=== PATIENT | female | born 1935 | race Caucasian/White ===

== ENCOUNTER → 2016-10-30 | Outpatient (CLI) | payer MEDICARE, BC | LOC: MC.RAD 13:16 | DX: Z12.31 Encounter for screening mammogram for malignant neoplasm of breast (principal) ==

== ENCOUNTER 2017-09-28 11:16 | Emergency (ER) | payer MEDICARE, BC ==
[~2017-09-28] VITALS: Ht 157.5 cm; Wt 63.6 kg
[2017-09-28 11:19] VITALS: TEMP 97.7
[2017-09-28] MEDS ORDERED: ZOCOR 40MG40 MG PO (11:40)
[2017-09-28] MEDS ORDERED: ZOCOR 40MG40 MG (11:41)
[2017-09-28] MEDS ORDERED: LEVOXYL0.025 MG (11:42)
[2017-09-28] MEDS ORDERED: NORMODYNE100 MG (11:43)
[2017-09-28] MEDS ORDERED: ZESTRIL 5MG5 MG (11:43)
[2017-09-28] MEDS ORDERED: NAMENDA5 MG (11:44)
[2017-09-28] MEDS ORDERED: ARICEPT 5MG (11:44)
[2017-09-28 12:57] LABS: BASO % 0.4 % (0.0-2.0); EOS # 0.1 (0.0-0.7); EOS % 1.1 % (0-4.0); GRAN # 7.2 (1.4-6.5); GRAN % 72.6 % (42.2-75.2); HEMATOCRIT 39.1 % (37.0-47.0); HEMOGLOBIN 12.7 g/dl (12.5-16.0); LYMPH # 1.8 (1.2-3.4); LYMPH % 17.8 % (20.0-51.0); MEAN CELL VOLUME 98 fl (80.0-100.0); MEAN CORPUSCULAR HEMOGLOBIN 32 pg (27.0-31.0); MEAN CORPUSCULAR HGB CONC 33 g/dl (33.0-37.0); MONO # 0.7 (0.1-0.6); MONO % 7.4 % (1.7-9.3); PLATELET COUNT 185 K/mm3 (130-400); RED BLOOD COUNT 3.99 M/mm3 (4.10-5.30); REDCELL DISTRIBUTION WIDTH-CV 12.8 % (11.5-14.5)
[2017-09-28 13:43] LABS: ALANINE AMINOTRANSFERASE 28 U/L (9-52); ALBUMIN 3.7 gm/dL (3.5-5.0); ALKALINE PHOSPHATASE 89 U/L (50-136); ANION GAP 8 mmol/L (7-16); AST,SGOT 39 U/L (15-37); BILIRUBIN,TOTAL 0.4 mg/dL (0.0-1.0); BLOOD UREA NITROGEN 16 mg/dL (7-17); CALCIUM 9.1 mg/dL (8.4-10.2); CARBON DIOXIDE 24 mmol/L (22-30); CHLORIDE 106 mmol/L (98-107); CREATININE, serum 1.28 mg/dL (0.52-1.25); GLUCOSE 98 mg/dL (74-106); POTASSIUM 4.7 mmol/L (3.4-5.0); SODIUM 138 mmol/L (137-145); TOTAL PROTEIN 6.5 gm/dL (6.4-8.2)
[2017-09-28 13:57] LABS: TROPONIN-I < 0.012 ng/mL (0.000-0.034)
[2017-09-28 14:07] VITALS: BP 131/57
[2017-09-28 14:40] VITALS: PULSE 58
== END 2017-09-28 14:35 | disposition home or self-care (01) ==
LOC: COL.ER 11:16
PROVIDERS: Emergency Medicine
DX: S01.01XA Laceration without foreign body of scalp, initial encounter (principal); I10 Essential (primary) hypertension; E78.5 Hyperlipidemia, unspecified; E03.9 Hypothyroidism, unspecified; F03.90 Unspecified dementia, unspecified severity, without behavioral disturbance, psychotic disturbance, mood disturbance, and anxiety; Z23 Encounter for immunization; W18.30XA Fall on same level, unspecified, initial encounter; Y92.009 Unspecified place in unspecified non-institutional (private) residence as the place of occurrence of the external cause

== ENCOUNTER → 2017-12-09 | Outpatient (CLI) | payer MEDICARE, BC ==
[~2017-12-09] MED LIST: ARICEPT 5MG; LEVOXYL0.025 MG; NAMENDA5 MG; NORMODYNE100 MG; ZESTRIL 5MG5 MG; ZOCOR 40MG40 MG; ZOCOR 40MG40 MG PO
== END ==
LOC: MC.RAD 12:55
DX: Z12.31 Encounter for screening mammogram for malignant neoplasm of breast (principal)

== ENCOUNTER → 2019-02-17 | Outpatient (CLI) | payer MEDICARE, BC | LOC: MC.RAD 13:37 | DX: Z12.31 Encounter for screening mammogram for malignant neoplasm of breast (principal) ==

== ENCOUNTER 2019-03-24 13:59 | Emergency (ER) | payer MEDICARE, BC ==
[~2019-03-24] VITALS: Ht 157.5 cm; Wt 45.5 kg
[2019-03-24 14:02] VITALS: TEMP 97.6
[2019-03-24 14:55] LABS: BASO % 0.3 % (0.0-2.0); EOS # 0.1 (0.0-0.7); EOS % 1.4 % (0-4.0); GRAN # 5.9 (1.4-6.5); GRAN % 63.4 % (42.2-75.2); LYMPH # 2.1 (1.2-3.4); MEAN CELL VOLUME 98 fl (80.0-100.0); MEAN CORPUSCULAR HEMOGLOBIN 32 pg (27.0-31.0); MEAN CORPUSCULAR HGB CONC 33 g/dl (33.0-37.0); MEAN PLATELET VOLUME 10.2 fl (7.4-10.4); MONO # 1.2 (0.1-0.6); MONO % 12.4 % (1.7-9.3); PLATELET COUNT 250 K/mm3 (130-400); RED BLOOD COUNT 3.74 M/mm3 (4.10-5.30); REDCELL DISTRIBUTION WIDTH-CV 12.7 % (11.5-14.5)
[2019-03-24 15:04] LABS: ALBUMIN 3.6 gm/dL (3.5-5.0); BILIRUBIN,TOTAL 0.6 mg/dL (0.0-1.0); CALCIUM 9.1 mg/dL (8.4-10.2); CREATININE, serum 1.23 (0.52-1.25); HEMATOCRIT 36.6 % (37.0-47.0); POTASSIUM 4.7 mmol/L (3.4-5.0); TOTAL PROTEIN 6.8 gm/dL (6.4-8.2); URIC ACID 7.4 mg/dL (2.5-6.2)
[2019-03-24 16:27] VITALS: BP 126/61; PULSE 65
[2019-03-24] MEDS ORDERED: PREDNISONE10 MG PO (16:27)
== END 2019-03-24 16:27 | disposition home or self-care (01) ==
LOC: COL.ER 13:59
PROVIDERS: Physician Assistant
DX: M10.9 Gout, unspecified (principal); E78.5 Hyperlipidemia, unspecified; E86.0 Dehydration; I10 Essential (primary) hypertension; E03.9 Hypothyroidism, unspecified; F03.90 Unspecified dementia, unspecified severity, without behavioral disturbance, psychotic disturbance, mood disturbance, and anxiety
CPT/HCPCS: J1885; J7030